=== PATIENT | male | born 1960 | race Caucasian/White ===

== ENCOUNTER 2022-05-27 11:50 | Outpatient (REF) | payer OTHER, SELFPAY ==
[2022-05-27 13:43] LABS: Erythrocyte Sedimentation Rate 2 MM/HR (0-15)
== END 2022-05-27 11:51 | disposition home or self-care (01) ==
LOC: HO.LAB 11:50
PROVIDERS: Visit Provider Psychiatry & Neurology Neurology
DX: H46.9 Unspecified optic neuritis (principal)
CPT/HCPCS: 36415; 85652

== ENCOUNTER 2025-04-10 15:22 | Outpatient (AMB) | payer OTHER, SELFPAY ==
--- NOTE | 2025-04-10 15:31 | A.OFFVIS_ITS ---
Vital Signs 04/10/25 15:34 Height 6 ft Intake Visit Reasons: 6m Allergies penicillin V Allergy (Unknown, Verified 04/10/25 15:35) Unknown Medication List - Last Reconciled 04/10/25 by Lela Mojica CNP albuterol sulfate 90 mcg/actuation 2 puffs inhalation Q4-6H PRN amlodipine 5 mg PO DAILY aspirin 81 mg PO DAILY atorvastatin 80 mg PO DAILY azelastine 2 sprays intranasal BID budesonide-formoterol 160-4.5 mcg/actuation (Symbicort) 1 puff inhalation BID budesonide-formoterol 160-4.5 mcg/actuation (Symbicort) 2 puffs inhalation BID cetirizine 10 mg PO DAILY isosorbide mononitrate ER 60 mg PO DAILY naproxen sodium 550 mg PO Q12H PRN nortriptyline 25 mg PO BEDTIME pantoprazole 40 mg PO DAILY tiotropium bromide (Spiriva with HandiHaler) 1 cap inhalation DAILY tiotropium bromide (Spiriva with HandiHaler) 1 cap inhalation DAILY HPI Comments Details: He was doing okay. Headaches are okay. Headaches triggered by rain and weather changes. Taking naproxen or ibuprofen as needed with good effects. Will usually take ibuprofen a day before storms/weather which works well. Gets frontal headache day of storm/weather, with mild headache 24-36 hr before. Sleep was okay. Has an area of right paracentral quarter size of blurring in right eye between 12 and 2 on the clock that started after hitting eye socket in summer 2021. It has not gotten any worse. Eye exam was okay. Has chronic sinusitis, gets allergy shots, nasal spray, and Zyrtec. Hx of chronic headaches for 20+ years. Headaches triggered by weather changes, particularly storms and cold weather. He gets bifrontal and retro-orbital pressure and pain with congestion lasting 1-2 days. Has tried ibuprofen and Tylenol in the past. He has seen 2 different ENT physicians, has had CT scan for chronic sinusitis in the past. Has mildly deviated nasal septum. Has some difficulty sleeping at night. FORMERLY [facility], [facility]–1983 Medical History (Updated 04/10/25 @ 15:40 by Lela Mojica CNP) Asthma Optic neuritis Tension headache CAD (coronary artery disease) Sinusitis Surgical History (Updated 04/09/25 @ 19:48 by Solange Brooks MA) History of coronary artery stent placement Family History (Updated 04/09/25 @ 19:49 by Solange Brooks MA) Sister CAD (coronary artery disease) Review of Systems Const Denies chills, Denies daytime sleepiness, Reports difficulty sleeping, Denies fatigue, Denies fever(s), Denies frequent falls, Reports headache(s), Denies increased appetite, Denies poor appetite, Denies snoring, Denies weakness, Denies weight gain and Denies weight loss Eyes Reports loss of vision (as per HPI) ENT Reports Normal hearing present, Denies vertigo, Denies dizziness, Reports headache(s) and Denies neck pain Card Denies chest pain at rest, Denies chest pain with activity, Denies syncope, Denies leg edema, Denies palpitations, Denies dyspnea and Denies dyspnea on exertion Resp Denies cough, Denies dyspnea, Denies dyspnea on exertion and Denies snoring GI Denies abdominal pain, Denies constipation, Denies heartburn, Denies diarrhea and Denies nausea Denies urinary frequency, Denies urinary incontinence and Denies urinary urgency Musc Denies abnormal gait, Denies back pain, Denies myalgias, Denies arthralgias, Denies neck pain, Denies numbness, Denies stiffness and Denies tingling Neuro Reports Normal hearing present, Denies Abnormal speech present, Denies abnormal gait, Denies vertigo, Denies dizziness, Denies syncope, Denies frequent falls, Reports headache(s), Denies lack of coordination, Reports loss of vision (as per HPI), Denies memory loss, Denies numbness, Denies Other visual disturbances, Denies restless legs, Denies seizure-like activity, Denies tingling, Denies paresthesias, Denies tremor(s) and Denies weakness Psych Denies anxiety, Denies depression, Denies memory loss, Denies visual hallucinations and Denies hallucinations Endo Denies fatigue and Denies palpitations Physical Exam Const Other: General Appearance:? normal, in no acute distress. Heart:? S1, S2 normal, no murmurs. Lungs:? clear anteriorly and posteriorly. Musculoskeletal:? normal. Extremities:? no edema. Psych:? alert, oriented, cognitive function intact, cooperative with exam. Neuro Other: Abnormal Neurological Findings:?none.? Mental Status: alert and oriented X 3. Normal attention, orientation, memory, and affect. Cranial Nerves: Pupils are equal, round, and reactive to light. External ocular muscles are intact. Visual cohen are full, no ptosis. Face is symmetrical, no facial weakness or droop. Facial sensations are normal. Tongue protrudes in midline. Palate elevates symmetrically. Shoulder shrugging is normal Motor Examination: Normal muscle tone, bulk and strength. No atrophy or fasciculations. No drift of the extended upper extremities. DTR 2+. Plantars are flexor. Straight Leg Raisin degrees. Sensory Exam: Normal light touch, temperature, pinprick, vibration, and joint- position sensations. Rhomberg sign is absent. Coordination: No ataxia. No titubation. Mivcvo-zt-gkky, mwej-jljr-jbhg test, and rapid alternating movements were normal. Gait Exam: Within normal limits. Cerebellar Signs: Jvhbwb-qj-abqk and jenm-gn-kwze is normal. No dysdiadochokinesia. Extrapyramidal System: No tremor, rigidity with normal facial expressions. No bradykinesia. No bradyphrenia. Normal arm swing and posture. No propulsion or retropulsion. Speech: Normal. No dysphasia or dysarthria. Cranial nerves: Yes Normal hearing present Speech: No Abnormal speech present Results Reviewed Results Reviewed: 06/24/22 ALESSIO shows symmetrical slight del ay bilateral on small check size stim. Normal amplitudes. Assessment & Plan Assessment & Plan (1) Tension headache: Code(s): G44.209 - Tension-type headache, unspecified, not intractable Category: Medical Plan: Refilled nortriptyline 25mg 1 capsule at bedtime Continue naproxen 550mg 1 tablet with food or milk as needed q12h (2) Optic neuritis: Code(s): H46.9 - Unspecified optic neuritis Category: Medical Plan: . Plan . Medications: New nortriptyline 25 mg PO BEDTIME 90 caps 1RF 90 days Discontinued nortriptyline Discontinued Reason: Order 25 mg PO BEDTIME Coding Level of Care Code Est Pt Level 3 (66022) Diagnoses Tension headache G44.209 Optic neuritis H46.9
--- OUTSIDE RECORDS SUMMARY | 2025-04-10 15:53 | XMS_ITS | Data Portability ---
Author Organization [facility], [address] Address [address] [place] [address] Care Team Providers Care Casino Shift Manager Name Role Phone DILIP ELLSWORTH Primary Care Provider Assessment Encounter Date Assessment Date Assessment LastModified by Organization Details LastModified Time 03/10/2024 03/10/2024 The laceration was sutured today, the following are the care instructions to promote healing and reduce complications: 1. For the next 48 hours do not submerge the injury in water, if you do get it wet remove dressing and replace with a new one once the area drys out. 2. Keep for bending or stretching the area for the next 72 hours. This is the most important to promote the wound will heal together and have a good cosmetic outcome. Keep the area covered to help prevent bending but don't make the dressing too tight. 3. Keep a dressing on the wound for the next 5-7 days, but you need to change it daily after the first 48 hours. Try to leave the original dressing on and dry. After 72 hours, try to leave the area open to the air at night. 4. Watch for any signs of infection this would be: Increasing Redness, Warmth, Pain, Swelling, Purulent discharge. If this occurs you need to return right away so we can assess if some of those sutures need to be removed. 5. Do not put any Creams/Neospori n/Lotions on the area. You want the wound to harden and heal - not stay soft. Return in 7 days to have the sutures removed. If you would prefer to see you PCP that would be ok, but we are happy to do that for you. After the sutures are removed I would advise using Mederma 2x daily for 60 days to help to reduce scarring. Also using sunscreen for several months on the area is important. Thank you for using [facility], please don't hesitate to contact us if you have any questions or concerns. silvana Not available 03/10/2024 11:57:46 Plan of Treatment Reminders Order Date Submit Date Provider Last Modified By Organization Details Last Modified Time Details Appointments None record ed. Lab None record ed. Referral None record ed. Procedures None record ed. Surgeries None record ed. Imaging None record ed. Medication Orders None record ed. Patient TargetsNo targets recorded. Patient Instructions Encounter Date Encounter Id Patient Instructions Last Modified By Organization Details Last Modified Time 03/10/2024 [id number] application of wound dressing* SHANTEL Not available 03/10/2024 12:21:28 cuts closed with stitches: care instructions silvana Not available 03/10/2024 12:01:09 Discharge Instructions - Wound Care - Wash the wound gently with soap and warm water once daily. Otherwise keep wound clean, dry and covered with a dressing. - Do not immerse in water, and do not use alcohol or peroxide to clean. Do not use iodine or mercurochrome. - Elevate to decrease pain and improve healing. - Minimize use of affected body part. - Return here or see your doctor for any sign of infection, including redness, swelling, pus or increased pain. - Return for wound check in 2 or 3 days. - Return to have stiches removed in 7 days. - If you received a tetanus shot the site may become sore and you may develop a low-grade fever. Take Tylenol if you have fever or pain. Return for a more severe reaction. - See your doctor or return here if not improving in 3 days. silvana Not available 03/10/2024 12:01:52 Reason for Referral None Reported. Results Created Date Observation Date Name Description Value Unit Range Abnormal Flag Note LastModifiedBy Organization Detail LastModifiedTime 03/10/20 24 03/10/2024 appli catio n of wound dress ing* Applied? Yes Not Available [address] [place], [address], 03/10/2024 11:57:21 Result Notes None recorded. Problems Name Problem SNOMED Code Status Onset Date Resolution Date Notes Provider Name and Address Organization Details Recorded Time Heart disease 30319743 Active Naomi Mcelroymellyto n null, PA - [facility] 4 10:33:54 Hypertensiv e disorder 82780846 Active Naomi Mcelroyringto n null, PA - [facility] 4 10:34:08 Asthma 198706218 Active Naomi Mcelroyringto n null, PA - [facility] 4 10:34:18 Migraine 35408906 Active Naomi Mcclendonto n null, PA - [facility] 4 10:34:26 Laceration of left thigh 8978000964302 9109 Active 2023 LISA ZAMORA NP [address] , [place], [address], [place] - [facility] 4 11:56:49 Problem Notes None recorded. Procedures Surgical History Date Name Laterality Status Provider Name and Address Organization Details Recorded Time 4 Suture Removal completed Bola Shaw NP [address], [place], [address], PA - [facility] 03/18/2024 09:20:44 4 Laceration, Simple Repair, (scalp/neck/ trunk/genita marco a/extremit ies) 2.6-7.5cm completed LISA ZAMORA NP [address], [place], [address], PA - [facility] 03/10/2024 11:58:39 Imaging Results None recorded. Procedure Notes None recorded. Medical Equipment None Reported. Allergies Allergen ID Allergen Name Allergen Category Reaction Reaction Severity Criticality Documentation Date Start Date Code Code System Note Provider Name and Address Organization Details Recorded Time 499900 tree and shrub pollen environme nt,medica tion anaphylax is Not available Not available 03/10/2024 07161 UNK Naomi Brett n null, PA - [facility] 4 10:31:26 979571 Product containin g penicilli n (product) medicatio n rash Not available high 03/18/2024 88625 8001 SNOMED DIMA Leal - [facility] 4 08:55:00 Medications Name Sig Start Date Stop Date Status Note LastModified by Organization Details LastModified Time atorvastati n 80 mg tablet TAKE 1 TABLET BY MOUTH DAILY active Not Available Not Available No t Available prednisone 10 mg tablet 03/10 completed Not Available Not Available Not Available azithromyci n 250 mg tablet FOLLOW PACKAGE DIRECTION S 03/10 completed Not Available Not Available Not Available benzonatate 200 mg capsule TAKE 1 CAPSULE BY MOUTH THREE TIMES DAILY FOR 10 DAYS NEEDED FOR COUGH 03/10 completed Not Available Not Available Not Available amlodipine 5 mg tablet TAKE 1 TABLET BY MOUTH DAILY active Not Available Not Available No t Available nortriptyli ne 25 mg capsule TAKE 1 CAPSULE BY MOUTH AT BEDTIME active Not Available Not Available No t Available isosorbide mononitrate ER 60 mg tablet,exte nded release 24 hr TAKE 1 TABLET BY MOUTH DAILY active Not Available Not Available No t Available pantoprazol e 40 mg tablet,ligia yed release TAKE 1 TABLET BY MOUTH DAILY active Not Available Not Available No t Available naproxen sodium 550 mg tablet TAKE 1 TABLET BY MOUTH EVERY 12 HOURS WITH FOOD OR MILK NEEDED active Not Available Not Available No t Available oseltamivir 75 mg capsule TAKE 1 CAPSULE BY MOUTH TWICE DAILY FOR 5 DAYS active Not Available Not Available No t Available azelastine 137 mcg (0.1 %) nasal spray USE 2 SPRAYS IN EACH NOSTRIL TWICE DAILY active Not Available Not Available No t Available methylpredn isolone 4 mg tablets in a dose pack FOLLOW PACKAGE DIRECTION S 03/10 completed Not Available Not Available Not Available albuterol sulfate HFA 90 mcg/actuati on aerosol inhaler INHALE 2 PUFFS BY MOUTH EVERY 6 HOURS J 44.9 active Not Available Not Available No t Available Spiriva with HandiHaler 18 mcg and inhalation capsules INHALE THE CONTENTS OF 1 CAPSULE VIA INHALATIO N DEVICE DAILY active Not Available Not Available No t Available Symbicort 160 mcg-4.5 mcg/actuati on HFA aerosol inhaler INHALE 1 PUFF BY MOUTH TWICE DAILY J 44.909 active Not Available Not Available No t Available GaviLyte-G 236 gram-22.74 gram-6.74 gram-5.86 gram oral solution active Not Available Not Available Not Available Incruse Ellipta 62.5 mcg/actuati on powder for inhalation INHALE 1 PUFF BY MOUTH EVERY 24 HOURS DOSES SHOULD BE TAKEN AT LEAST 24 HOURS APART active Not Available Not Available No t Available Vitals Date Recorded Body height Body mass index (BMI) Body weight Respiratory rate Heart rate Body temperature Systolic And Diastolic Provider Name and Address Organization Details Last Updated DateTime 4 182.88 cm 25 kg/m2 56867 g 18 /min 106 /min 98.1 [degF] 136/87 mm[Hg] Naomi rabago PA - [facility] 4 10:30:51 Date Recorded Body height Body mass index (BMI) Body weight Oxygen saturation Oxygen saturation in Arterial blood by Pulse oximetry Heart rate Respiratory rate Body temperature Systolic And Diastolic Provider Name and Address Organization Details Last Updated DateTime 4 182.88 cm 25 kg/m2 75550 g 98 % 98 % 85 /min 18 /min 97.5 [degF] 115/68 mm[Hg] Cari Sahu PA - [facility] 4 08:58:05 Social History Question Answer Notes LastModified by Alexandre de Parisizat ion Details LastModified Time Tobacco Smoking Status Current Every Day Smoker Naomi pérez PA - [facility] 03/10/2024 10:34:58 Have You Had Direct Contact, Or Contact During Intimacy, With Monkeypox Rash, Scabs, Or Body Fluids From A Person With Monkeypox? No Information not available 03/10/2024 What Was The Date Of Your Most Recent Tobacco Screening? 03/18/2024 Information not available 03/18/2024 What Is Your Current Pack Years? 10packyears Information not available 03/18/2024 What Is Your Relationship Status? Information not available 03/18/2024 Have You Recently Traveled Abroad? No Information not available 03/10/2024 Are You Currently In School? No Information not available 03/18/2024 Sex: Unknown Functional Status Question Answer Note LastModified by Organizat ion Details LastModified Time How many times per week do you consume alcohol? Less than 1 time per week vinny Information not available 03/18/2024 Do you use any illicit or recreational drugs? Yes Information not available 03/10/2024 Do you or have you ever used any other forms of tobacco or nicotine? No Information not available 03/10/2024 What is your level of alcohol consumption? Occasional Information not available 03/10/2024 Are you currently employed? Yes Information not available 03/18/2024 Mental Status None recorded. Family History Relationship Description Onset Age of this Age Resolved Age Notes LastModified by Organization Details LastModified Time Father No current problems or disability Not available 10:34:29 Mother No current problems or disability Not available 10:34:29 Medical History No medical history recorded. Immunizations Vaccine Type Date Status Note Provider Nam e and Address Organization Details Recorded Time Influenza, MDCK, quadrivalent, PF 8 completed Cari Sahu null, PA - [facility] 03/18/2024 08:54:15 COVID-19, mRNA, LNP-S, PF, 100 mcg/0.5mL dose or 50 mcg/0.25mL dose 1 completed Cari Sahu null, PA - [facility] 03/18/2024 08:54:15 COVID-19, mRNA, LNP-S, PF, 100 mcg/0.5mL dose or 50 mcg/0.25mL dose 1 completed Cari Mcgrath Hedavin null, PA - [facility] 03/18/2024 08:54:15 COVID-19, mRNA, LNP-S, PF, 100 mcg/0.5mL dose or 50 mcg/0.25mL dose 1 completed Cari Sahu null, PA - [facility] 03/18/2024 08:54:15 Tdap 9 completed Cari Sahu null, PA - [facility] 03/18/2024 08:54:15 Tdap 1 completed Cari Mcgrath Heyliger null, PA - [facility] 03/18/2024 08:54:15 Td (adult), 2 Lf tetanus toxoid, preservative free, adsorbed 1 completed Caridianne Mcgrath Heyliger null, PA - [facility] 03/18/2024 08:54:15 Influenza, split virus, quadrivalent, PF 2 completed Cari Mcgrath Heyliger null, PA - [facility] 03/18/2024 08:54:15 Influenza, split virus, quadrivalent, PF 0 completed Cari Mcgrath Heyliger null, PA - [facility] 03/18/2024 08:54:15 Influenza, split virus, quadrivalent, PF 3 completed Caridianne Mcgrath Heyliger null, PA - [facility] 03/18/2024 08:54:15 Influenza, split virus, quadrivalent, PF 7 completed Cari Mcgrath Heyliger null, PA - [facility] 03/18/2024 08:54:15 Influenza, split virus, quadrivalent, PF 1 completed Cari Mcgrath Heyliger null, PA - [facility] 03/18/2024 08:54:15 Tdap 4 completed LISA ZAMORA NP [address] [facility] [place], [address], PA - [facility] 03/10/2024 19:23:50 Past Encounters Encounter ID Performer Location Encounter Start Date Encounter Closed Date Diagnosis/Indication Diagnosis SNOMED-CT Code Diagnosis ICD10 Code Diagnosis Note [id number] [address] [place] [address] 10/05/2015 19:03:30 10/05/2015 19:49:27 [id number] [address] [place] [address] 10/18/2016 10:32:40 10/18/2016 11:04:25 [id number] [address] [place] [address] 12/17/2018 09:47:03 12/17/2018 10:55:09 [id number] [address] [facility] [place] [address] 03/23/2021 08:15:57 03/23/2021 09:05:22 [id number] [address] [place] [address] 12/08/2020 18:22:45 12/08/2020 20:04:36 [id number] [address] [place] [address] 12/14/2016 11:17:28 12/14/2016 13:33:15 [id number] [address] [place] [address] 01/18/2016 10:21:11 01/18/2016 10:49:42 [id number] LISA ZAMORA, WINE STEWARD [address] [place] [address] 03/10/2024 10:21:58 03/10/2024 12:04:32 Laceration of left thigh [id number] S71.112A [id number] Bola Colin, WINE STEWARD [address] [place] [address] 03/18/2024 08:47:09 03/18/2024 09:22:18 Laceration of left thigh [id number] S71.112A KEEP AREA CLEAN AND DRY.MAY APPLY SMALL AMOUNT OF TRIPLE ANTIBIOTIC OINTMENT TO AREA DAILY.LET AREA AIR DRY MUCH POSSIBLE.C OVER AREA IF OUT IN PUBLIC.NO ANIMIALS AROUND WOUND.MAY WASH AREA WITH GENTLE ANTIBACTER IAL SOAP OR BABY SHAMPOO.JONES TURES OUT INSTRUCTED .KEEP EXTREMITY ELEVATEDAV OID DISHWATER, BATH TUB WATER, POOL OR HESTER WATER.STEWART TOR FOR SIGNS OF INFECTION: FEVER, REDNESS, SWELLING, YELLOW DRAINAGE, RED STREAKING, INCREASED PAIN OR DECREASED MOVEMENT OF EXTREMITY. GO TO ER IMMEDIATEL Y.IF PRESCRIBED ANTIBIOTIC : TAKE ALL OF ANTIBIOTIC DIRECTED.M AY CHANGE DRESSING DAILY NEEDED.MAY RETURN IN 2 TO 3 DAYS FOR WOUND RECHECK NEEDED. Removal of suture [id number] Z48.02 KEEP AREA CLEAN AND DRY.MAY APPLY SMALL AMOUNT OF TRIPLE ANTIBIOTIC OINTMENT TO AREA DAILY.LET AREA AIR DRY MUCH POSSIBLE.C OVER AREA IF OUT IN PUBLIC.NO ANIMIALS AROUND WOUND.MAY WASH AREA WITH GENTLE ANTIBACTER IAL SOAP OR BABY SHAMPOO.JONES TURES OUT INSTRUCTED .KEEP EXTREMITY ELEVATEDAV OID DISHWATER, BATH TUB WATER, POOL OR HESTER WATER.STEWART TOR FOR SIGNS OF INFECTION: FEVER, REDNESS, SWELLING, YELLOW DRAINAGE, RED STREAKING, INCREASED PAIN OR DECREASED MOVEMENT OF EXTREMITY. GO TO ER IMMEDIATEL Y.IF PRESCRIBED ANTIBIOTIC : TAKE ALL OF ANTIBIOTIC DIRECTED.M AY CHANGE DRESSING DAILY NEEDED.MAY RETURN IN 2 TO 3 DAYS FOR WOUND RECHECK NEEDED. Health Concerns Section Related Observation LastModified by Organization Detai ls LastModified Time None Recorded Concern Status LastModified by Organization Details LastModified Time None Recorded Advance Directives Directive None Recorded Payers Insurance Date Sequence Insurance Name Policy Number Policy Verdin Covered Member ID Verdin Member ID Guarantor Name 03/18/2024 1 [facility] [id number] Kendell Barillas [id number] Kendell Barillas Notes Date Note Type Note Provider Name and Address Organization Details Recorded Time 03/10/2024 text/html UC Wound/LacerationRe ported bypatient.Location :thighs; left inner thigh laceration Severity:moderate Context:trauma 64 y male here for laceration to inner thigh, left legwas cutting some pipes when the blade slipped and caused injury to inner thightetanus unknown LISA ZAMORA NP [address] [place], [address], [place] - [facility] 03/10/2024 19:24:17 03/18/2024 text/html UC Wound/LacerationRe ported bypatient.Location :thighs; left inner thigh laceration Severity:moderate Context:trauma 64 y male here for laceration to inner thigh, left legwas cutting some pipes when the blade slipped and caused injury to inner thightetanus unknown Bola Shaw NP [address] [place], [address], PA - [facility] 03/18/2024 09:21:16
--- OUTSIDE RECORDS SUMMARY | 2025-04-10 15:53 | XMS_ITS | Clinical Summary ---
Author Organization [facility] [employer] [facility] Address [address] [place] [address] Care Team Providers Care Grocery Deliverer Name Role Phone Rsahid Madden Primary Care Provider [phone] Medications amLODIPine (NORVASC) 5 mg tablet Take 1 tablet (5 mg total) by mouth 1 (one) time each day. 90 each 3 4 Active isosorbide mononitrate (IMDUR) 60 mg 24 hr tablet Take 1 tablet (60 mg total) by mouth 1 (one) time each day. Do not crush or chew. 90 each 2 4 Active atorvastatin (LIPITOR) 80 mg tablet Take 1 tablet (80 mg total) by mouth 1 (one) time each day. 90 tablet 1 5 Active atorvastatin (LIPITOR) 80 mg tablet Take 1 tablet (80 mg total) by mouth 1 (one) time each day. 4 03/26/20 25 Discontinu ed(Reorder ) Encounters Date Type Department Care Team Description 03/26/2025 Telephone [facility] Cardiology [facility] [address] [place] [address] Cam Trevino MD from Last 3 Months Surgical History Surgery Date Site/Laterality Comments OTHER SURGICAL HISTORY 1987 PROCEDURE: [place] REPAIR PRIMARY OPEN/PRQ RUPTURED ACHILLES TENDON; COMMENT: Right OTHER SURGICAL HISTORY PROCEDURE: VT OPEN TX TRANS-SCAPHOPERILUNAR FRACTURE DISLC; COMMENT: Right OTHER SURGICAL HISTORY 12/2007 PROCEDURE: CHG ASSAY OF PROSTATE SPECIFIC ANTIGEN FREE; COMMENT: 1.2 HERNIA REPAIR 04/2008 PROCEDURE: HISTORICAL HERNIA REPAIR/ING; COMMENT: Right; Delacruz COLONOSCOPY 10/07/2012 PROCEDURE: VT COLONOSCOPY FLX DX W/COLLJ SPEC WHEN PFRMD; COMMENT: normal OTHER SURGICAL HISTORY 08/12/2015 Right PROCEDURE: VT OPEN REPAIR OF ROTATOR CUFF ACUTE; COMMENT: Florentin OTHER SURGICAL HISTORY 03/30/2019 PROCEDURE: UPPER GASTROINTESTINAL ENDOSCOPY IN; COMMENT: Grade A esophagitis in the GE, medium hiatal hernia, erosive gastritis OTHER SURGICAL HISTORY 10/04/2015 PROCEDURE: VT EGD PARTIAL/COMPL ESOPHAGOGASTRIC FUNDOPLASTY OTHER SURGICAL HISTORY PROCEDURE: SURGICAL STENT; COMMENT: Placement of stent in cardiac conduit Medical History Medical History Date Comments Migraine, unspecified, witho ut mention of intractable migraine without mention of status migrainosus 12/15/2007 DX:Migraine, uns pecified, without mention of intractable migraine without mention of status migrainosus Allergic rhinitis 12/15/2007 DX:Allergic rh initis Historical Medical DX 01/06/2008 DX:BPH Tobacco abuse 01/06/2008 DX:Tobacco abuse Chronic sinusitis 02/20/2008 DX:Chronic sin usitis; COMMENT: DR ROGEL, ENT [facility] Pulmonary embolism ([facility] V24, [facility] V28) 10/30/2015 DX:Pulmonary embolism (HCC) COPD (chronic obstructive pu lmonary disease) ([facility] V24, [facility] V28) 02/08/2014 DX:COPD (chronic o bstructive pulmonary disease) ([facility]); COMMENT: Luis Miguelini Initially felt COPD but 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 PFTS 2013 normal HI (myocardial infarction) ( [facility] V24, [facility] V28) 04/2017 DX:HI (myocardial infarction ) ([facility]); COMMENT: inferior wall HI, right coronary stent place, sees Dr. Ramos. HI (myocardial infarction) ( [facility] V24, [facility] V28) DX:HI (myocardial infarction ) ([facility]) Actinic keratosis, hx of DX:Acti lala keratosis, hx of Hiatal hernia with GERD and esophagitis 05/04/2019 DX:Hiatal hernia with GERD a nd esophagitis; COMMENT: Grade A esophagitis, [facility] GI - referral to surgery Hiatal hernia with GERD and esophagitis 05/04/2019 DX:Hiatal hernia with GERD a nd esophagitis Hypertension 11/08/2020 DX:Hypertension History of migraine DX:History o f migraine Dyspnea and respiratory abnormalities DX:Dyspnea and respiratory abnormalities Family History Medical History Relation Name Comments Leukemia Father Hyperlipidemia Mother Hypertension Mother Migraines Mother Leukemia Paternal Grandmother Other cancer Paternal Grandmother Leukemi a Heart attack Sister age 47 Heart attack Uncle 1 mat Stroke Uncle 2 mat Heart attack Uncle 3 mat; age 4 8 Leukemia Uncle 4 pat Blindness Neg Hx Cataracts Neg Hx Glaucoma Neg Hx Macular degeneration Neg Hx Strabismus Neg Hx Relation Name Status Comments Father Mother Paternal Grandmother Sister Uncle 1 Uncle 2 Uncle 3 Uncle 4 Social History Tobacco Use Types Packs/Day Years Used Date Smoking Tobacco: Every Day Cigarettes Smokeless Tobacco: Never Alcohol Use Standard Drinks/Week Comments Yes 0 (1 standard drink = 0.6 oz pur e alcohol) Sex and Gender Information Value Date Recorded Sex Assigned at Not on file Legal Sex Male 9:01 AM EST Gender Identity Not on file Sexual Orientation Not on file Obstetrics History Last Filed Vital Signs Vital Sign Reading Time Taken Comments Blood Pressure 122/70 06/15/2024 8:24 AM EDT L A rm Pulse 95 06/15/2024 8:24 AM EDT Temperature - - Respiratory Rate - - Oxygen Saturation - - Inhaled Oxygen Concentration - - Weight 82.1 kg (181 lb) 06/15/2024 8:24 AM EDT Height 182.9 cm (6') 06/15/2024 8:24 AM EDT Body Mass Index 24.55 06/15/2024 8:24 AM EDT Plan of Treatment Upcoming Encounters Date Type Department Care Team (Late st Contact Info) Description 05/28/2025 2:10 PM EDT Office Visit [facility] [address] [place] [address] Violeta Rushing NP [address] [place] [address] [address] [place] [address] Health Maintenance Due Date Last Done Comments Zoster Vaccines (1 of 2) 02/26/1979 Pneumococcal Vaccine: 50+ Years (2 of 2 - PCV) 04/28/2018 04/28/2017 Pneumococcal Vaccine: Pediatrics (0 to 5 Years) and At-Risk Patients (6 to 49 Years) (2 of 2 - PCV) 04/28/2018 04/28/2017 RSV Immunization Adult Patients (1 - Risk 60-74 years 1-dose series) 2020 Abdominal Aortic Aneurysm (AAA) Screen 09/12/2022 Cholesterol Screening (Lipid Panel) 09/12/2022 Colorectal Cancer Screening: Colonoscopy 09/12/2022 Depression Screening 09/12/2022 Hepatitis C Screening 09/12/2022 Social Influencers of Health Screening 09/12/2022 Hypertension/CHF/CAD Annual BMP Blood Test 09/13/2022 COVID-19 Vaccine ( season) 2024 09/30/2021, 11/05/2020, 10/08/2020 Falls Risk Assessment 02/26/2025 Influenza Vaccine (#1) 2025 , 07/26/2023, 07/16/2022, Additional history exists DTaP,Tdap,and Td Vaccines (5 - Td or Tdap) 03/10/2034 03/10/2024, 08/30/2021, 12/08/2020, Additional history exists HIB Vaccines Aged Out No longer eligi ble based on patient's age to complete this topic HPV Vaccines Aged Out No longer eligi ble based on patient's age to complete this topic Hepatitis A Vaccines Aged Out No long er eligible based on patient's age to complete this topic Hepatitis B Vaccines Aged Out No long er eligible based on patient's age to complete this topic IPV Vaccines Aged Out No longer eligi ble based on patient's age to complete this topic MMR Vaccines Aged Out No longer eligi ble based on patient's age to complete this topic Meningococcal ACWY Vaccine Aged Out N o longer eligible based on patient's age to complete this topic Meningococcal B Vaccine Aged Out No l onger eligible based on patient's age to complete this topic RSV Immunization Patients Under 20 months Aged Out No longer eligible based on patient's age to complete this topic Varicella Vaccines Aged Out No longer eligible based on patient's age to complete this topic Insurance [facility] Care Teams Grocery Deliverer Relationship Specialty Start Date End Date Rashid Madden PA PCP - General Internal Medicine 06/26/22
== END 2025-04-10 15:43 | disposition home or self-care (01) ==
LOC: HO.HSM 15:22
PROVIDERS: PCP Physician Assistant Medical; Referring Provider Physician Assistant Medical; Visit Provider Registered Nurse
DX: G44.209 Tension-type headache, unspecified, not intractable (principal); H46.9 Unspecified optic neuritis
CPT/HCPCS: 99213

== ENCOUNTER 2025-06-06 15:52 | Outpatient (AMB) | payer OTHER, SELFPAY ==
--- OUTSIDE RECORDS SUMMARY | 2025-06-06 17:44 | XMS_ITS | Clinical Summary ---
Author Organization [facility] Address [address] [place] [address] Phone Care Team Providers Care Regeneration Operator Name Role Phone Unavailable Primary Care Provider Unavailabl e Allergies Active Allergy Reactions Criticality Noted Date Comments Penicillin G 05/28/2025 Pale, sweaty, shaking Medications pantoprazole (PROTONIX) 40 mg EC tablet Take 1 tablet (40 mg total) by mouth 1 (one) time each day. Active aspirin 81 mg EC tablet Take 1 tablet (81 mg total) by mouth 1 (one) time each day. Active cetirizine (ZyrTEC) 10 mg tablet Take 1 tablet (10 mg total) by mouth 1 (one) time each day. Active azelastine (ASTELIN) 137 mcg (0.1 %) nasal spray Administer 2 sprays into each nostril 2 (two) times a day. Active Symbicort 160-4.5 mcg/actuation inhaler Inhale 1 puff by mouth 2 (two) times a day. Active Spiriva with HandiHaler 18 mcg per inhalation capsule Place 1 capsule (18 mcg total) into inhaler and inhale 1 (one) time each day. Active nitroglycerin (NITROSTAT) 0.[address] 1 tablet (0.4 mg total) under the tongue if needed. 7 Active nortriptyline (PAMELOR) 25 mg capsule Take 1 capsule (25 mg total) by mouth at bedtime. at bedtime Active UNABLE TO FIND Allergy injection every 2 weeks Active isosorbide mononitrate (IMDUR) 60 mg 24 hr tablet Take 1 tablet (60 mg total) by mouth 1 (one) time each day. Do not crush or chew. 90 each 2 5 Active amLODIPine (NORVASC) 5 mg tablet Take 1 tablet (5 mg total) by mouth 1 (one) time each day. 90 each 2 5 Active atorvastatin (LIPITOR) 80 mg tablet Take 1 tablet (80 mg total) by mouth 1 (one) time each day. 90 tablet 2 5 Active amLODIPine (NORVASC) 5 mg tablet Take 1 tablet (5 mg total) by mouth 1 (one) time each day. 90 each 3 4 05/28/20 25 Discontin ued(Reord er) isosorbide mononitrate (IMDUR) 60 mg 24 hr tablet Take 1 tablet (60 mg total) by mouth 1 (one) time each day. Do not crush or chew. 90 each 2 4 05/28/20 25 Discontin ued(Reord er) atorvastatin (LIPITOR) 80 mg tablet Take 1 tablet (80 mg total) by mouth 1 (one) time each day. 90 tablet 1 5 05/28/20 25 Discontin ued(Reord er) Active Problems Problem Noted Date Diagnosed Date Coronary artery disease invo lving [place] coronary artery of [place] heart without angina pectoris 05/28/2025 Assessment & Plan (05/28/2025 4:03 PM EDT): Patient has history of coronary artery disease status post right coronary artery stenting in 2017. He also has moderate nonobstructive coronary artery disease in his LAD. Patient feels well and denies any exertional anginal symptoms. He remains on cardioprotective medical therapy with aspirin and statin. He has sublingual nitroglycerin available if needed. I have reviewed with the patient the importance of a heart healthy lifestyle which includes eating a low-fat low-salt diet, getting regular exercise, maintaining a healthy weight, not smoking, and following up with routine medical care. Chronic GERD 05/28/2025 Hypertension 11/08/2020 Assessment & Plan (05/28/2025 4:03 PM EDT): Blood pressure is under excellent control with a reading today 124/80. We will make no changes to his present medical therapies and he will continue with amlodipine as prescribed. Hyperlipidemia 09/19/2014 Overview (05/28/2025): Last Assessment & Plan: Patient's last LDL cholesterol was 49. This is at goal. Continue with statin as prescribed. Assessment & Plan (05/28/2025 4:03 PM EDT): Patient's last LDL cholesterol 50. Continue with statin as prescribed. Resolved Problems Problem Noted Date Diagnosed Date Resolved Date Acute transmural inferior wa ll [place] ([facility] V24, [facility] V28) 06/24/2022 05/28/2025 Coronary artery disease 11/08/202005/05 Overview (05/28/2025): Last Assessment & Plan: Patient with a history of episodic coronary disease. Status post remote stenting in 2017. Preserved ejection fraction well-controlled lipids and no symptoms we discussed the signs and symptoms of progressive disease and the need to contact us if they occur otherwise the patient will continue present medical management and follow- up in 1 year Encounters Date Type Department Care Team Description 05/28/2025 2:10 PM EDT Office Visit [facility] Cardiology [address] [place] [address] Violeta Rushing NP Coronary artery disease involving [place] coronary artery of [place] heart without angina pectoris (Primary Dx); Primary hypertension; Mixed hyperlipidemia 03/26/[address] [place] [address] Cam Trevino MD from Last 3 Months Surgical History Surgery Date Site/Laterality Comments OTHER SURGICAL HISTORY 1987 PROCEDURE: RI REPAIR PRIMARY OPEN/PRQ RUPTURED ACHILLES TENDON; COMMENT: Right OTHER SURGICAL HISTORY PROCEDURE: RI OPEN TX TRANS-SCAPHOPERILUNAR FRACTURE DISLC; COMMENT: Right OTHER SURGICAL HISTORY 12/2007 PROCEDURE: CHG ASSAY OF PROSTATE SPECIFIC ANTIGEN FREE; COMMENT: 1.2 HERNIA REPAIR 04/2008 PROCEDURE: HISTORICAL HERNIA REPAIR/ING; COMMENT: Right; Jayme COLONOSCOPY 10/07/2012 PROCEDURE: RI COLONOSCOPY FLX DX W/COLLJ SPEC WHEN PFRMD; COMMENT: normal OTHER SURGICAL HISTORY 08/12/2015 Right PROCEDURE: RI OPEN REPAIR OF ROTATOR CUFF ACUTE; COMMENT: Florentin OTHER SURGICAL HISTORY 03/30/2019 PROCEDURE: UPPER GASTROINTESTINAL ENDOSCOPY IN; COMMENT: Grade A esophagitis in the GE, medium hiatal hernia, erosive gastritis OTHER SURGICAL HISTORY 10/04/2015 PROCEDURE: RI EGD PARTIAL/COMPL ESOPHAGOGASTRIC FUNDOPLASTY OTHER SURGICAL HISTORY [...] DX:Chronic sin usitis; COMMENT: DR ROGEL, ENT [facility] Pulmonary embolism ([facility], [facility] V28) 10/30/2015 DX:Pulmonary embolism ([facility]) COPD (chronic obstructive pu lmonary disease) ([facility]24, [facility] V28) 02/08/2014 DX:COPD (chronic o bstructive pulmonary disease) ([facility]); COMMENT: Nata Initially felt COPD but 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 PFTS 2013 normal AR (myocardial infarction) ( [facility] V24, [facility] V28) 04/2017 DX:AR (myocardial infarction ) ([facility]); COMMENT: inferior wall AR, right coronary stent place, sees Dr. Ramos. AR (myocardial infarction) ( [facility] V24, [facility] V28) DX:AR (myocardial infarction ) ([facility]) Actinic keratosis, hx of DX:Acti lala keratosis, hx of Hiatal hernia with GERD and esophagitis 05/04/2019 DX:Hiatal hernia with GERD a nd esophagitis; COMMENT: [facility]ophag[facility] Hiatal hernia with GERD and esophagitis 05/04/2019 DX:Hiatal hernia with GERD a nd esophagitis Hypertension 11/08/2020 DX:Hypertension History of migraine DX:History o f migraine Dyspnea and respiratory abnormalities DX:Dyspnea and respiratory abnormalities Acute transmural inferior wa ll AR ([facility] V24, [facility] V28) 06/24/2022 Family History Medical History Relation Name Comments [...] Tobacco: Every Day Cigarettes Smokeless Tobacco: Never Tobacco Cessation:Ready to Q uit: Not Asked; Counseling Given: Not Answered Comments:5 cigarettes daily Alcohol Use Standard Drinks/Week Comments Yes 0 (1 standard drink = 0.6 oz pur e alcohol) socially Sex and Gender Information Value Date Recorded Sex Assigned at Not on file Legal Sex Male 9:01 AM EST Gender Identity Not on file Sexual Orientation Not on file Obstetrics History Last Filed Vital Signs Vital Sign Reading Time Taken Comments Blood Pressure 124/80 05/28/2025 2:14 PM EDT Pulse 90 05/28/2025 2:14 PM EDT Temperature - - Respiratory Rate - - Oxygen Saturation 98% 05/28/2025 2:14 PM EDT Inhaled Oxygen Concentration - - Weight 81.2 kg (179 lb) 05/28/2025 2:14 PM EDT Height 182.9 cm (6') 05/28/2025 2:14 PM EDT Body Mass Index 24.28 05/28/2025 2:14 PM EDT Plan of Treatment Health Maintenance Due Date Last Done Comments Zoster Vaccines (1 of 2) 02/26/1979 Pneumococcal Vaccine: 50+ Years (2 of 2 - PCV) 04/28/2018 04/28/2017 RSV Immunization Adult Patients (1 - Risk 60-74 years 1-dose series) 2020 Abdominal Aortic Aneurysm (AAA) Screen 09/12/2022 Cholesterol Screening (Lipid Panel) 09/12/2022 Colorectal Cancer Screening: Colonoscopy 09/12/2022 Hepatitis C Screening 09/12/2022 Social Influencers of Health Screening 09/12/2022 Hypertension/CHF/CAD Annual BMP Blood Test 09/13/2022 Depression Screening 10/04/2024 Falls Risk Assessment 02/26/2025 COVID-19 Vaccine ( season) 2025 09/30/2021, 11/05/2020, 10/08/2020 Influenza Vaccine (#1) 2025 , 07/26/2023, 07/16/2022, [...] on patient's age to complete this topic Procedures Procedure Name Priority Date/Time Associated Diagnosis Comments ECG 12-LEAD Routine 05/28/2025 4:24 PM EDT Coronary artery disease involving [place] coronary artery of [place] heart without angina pectoris from Last 3 Months Results * ECG 12 lead (05/28/2025 4:24 PM EDT) Ventricular Rate ECG 79 BPM GEMUSE Atrial Rate 79 BPM GEMUSE P-R Interval 174 ms GEMUSE QRS Duration 84 ms GEMUSE Q-T Interval 406 ms GEMUSE QTc 465 ms GEMUSE P Wave [place] 61 degrees GEMUSE R [place] 76 degrees GEMUSE T [place] 69 degrees GEMUSE ECG Interpretation Sinus rhythm with occasional Premature ventricular complexes Otherwise normal ECG No previous ECGs available Confirmed by Antonella TREVINO JAMES ([id number]) on 05/29/2025 1:04:24 PM GEMUSE 05/28/2025 2:26 PM EDT 05/29/2025 1:04 PM EDT us Violeta Rushing SEARCH DEVELOPER ECG ORDERABLES Edited Resul t - Final GEMUSE from Last 3 Months Insurance [facility]
== END 2025-06-06 15:54 | disposition home or self-care (01) ==
LOC: HO.HMGAL 15:52
PROVIDERS: PCP Physician Assistant Medical; Visit Provider Registered Nurse Emergency
DX: J30.89 Other allergic rhinitis (principal)
CPT/HCPCS: 95117; 95165

== ENCOUNTER 2025-06-18 15:57 | Outpatient (AMB) | payer OTHER, SELFPAY ==
--- OUTSIDE RECORDS SUMMARY | 2025-06-18 21:11 | XMS_ITS | Clinical Summary ---
Author Organization [facility] [address] [facility] Address [address] [place] [address] Phone Care Team Providers Care Hole Puncher Strap Name Role Phone Unavailable Primary Care Provider [...] Diagnosed Date Coronary artery disease invo lving [place] coronary artery of [place] heart without angina pectoris 05/28/2025 Assessment & [...] Resolved Date Acute transmural inferior wa ll [place] (CMS/[facility] V24, [facility] V28) 06/24/2022 05/28/2025 Coronary artery disease 11/08/202005/05 [...] Description 05/28/2025 2:10 PM EDT Office Visit [facility] Cardiology [address] [place] [address] Violeta Rushing NP Coronary artery disease involving [place] coronary artery of [place] heart without angina pectoris (Primary Dx); Primary hypertension; Mixed hyperlipidemia 03/26/[address] [place] [address] Cam Trevino MD from Last 3 Months Surgical History Surgery Date Site/Laterality Comments OTHER SURGICAL HISTORY 1987 PROCEDURE: LA REPAIR PRIMARY OPEN/PRQ RUPTURED ACHILLES TENDON; COMMENT: Right OTHER SURGICAL HISTORY PROCEDURE: LA OPEN TX TRANS-SCAPHOPERILUNAR FRACTURE DISLC; COMMENT: Right OTHER SURGICAL HISTORY 12/2007 PROCEDURE: CHG ASSAY OF PROSTATE SPECIFIC ANTIGEN FREE; COMMENT: 1.2 HERNIA REPAIR 04/2008 PROCEDURE: HISTORICAL HERNIA REPAIR/ING; COMMENT: Right; Jayme COLONOSCOPY 10/07/2012 PROCEDURE: LA COLONOSCOPY FLX DX W/COLLJ SPEC WHEN PFRMD; COMMENT: normal OTHER SURGICAL HISTORY 08/12/2015 Right PROCEDURE: LA OPEN REPAIR OF ROTATOR CUFF ACUTE; COMMENT: Florentin OTHER SURGICAL HISTORY 03/30/2019 PROCEDURE: UPPER GASTROINTESTINAL ENDOSCOPY IN; COMMENT: Grade A esophagitis in the GE, medium hiatal hernia, erosive gastritis OTHER SURGICAL HISTORY 10/04/2015 PROCEDURE: LA EGD PARTIAL/COMPL ESOPHAGOGASTRIC FUNDOPLASTY OTHER SURGICAL HISTORY [...] DX:Chronic sin usitis; COMMENT: DR ROGEL, ENT [facility] Pulmonary embolism ([facility] V24, [facility] V28) 10/30/2015 DX:Pulmonary embolism ([facility]) COPD (chronic obstructive pu lmonary disease) ([facility] V24, [facility] V28) 02/08/2014 DX:COPD (chronic o bstructive pulmonary disease) ([facility]); COMMENT: Nata Initially felt COPD but 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 PFTS 2013 normal NE (myocardial infarction) ( [facility] V24, [facility] V28) 04/2017 DX:NE (myocardial infarction ) ([facility]); COMMENT: inferior wall NE, right coronary stent place, sees Dr. Ramos. NE (myocardial infarction) ( [facility] V24, [facility] V28) DX:NE (myocardial infarction ) ([facility]) Actinic keratosis, hx of DX:Acti lala keratosis, hx of Hiatal hernia with GERD and esophagitis 05/04/2019 DX:Hiatal hernia with GERD a nd esophagitis; COMMENT: Grade A esophagitis, [facility] - referral to surgery Hiatal hernia with GERD and esophagitis 05/04/2019 DX:Hiatal hernia with GERD a nd esophagitis Hypertension 11/08/2020 DX:Hypertension History of migraine DX:History o f migraine Dyspnea and respiratory abnormalities DX:Dyspnea and respiratory abnormalities Acute transmural inferior wa ll NE ([facility] V24, [facility] V28) 06/24/2022 Family History Medical History Relation [...] 4:24 PM EDT Coronary artery disease involving [place] coronary artery of [place] heart without angina pectoris from Last 3 Months Results * ECG 12 lead (05/28/2025 4:24 PM EDT) Ventricular Rate ECG 79 BPM GEMUSE Atrial Rate 79 BPM GEMUSE P-R Interval 174 ms GEMUSE QRS Duration 84 ms GEMUSE Q-T Interval 406 ms GEMUSE QTc 465 ms GEMUSE P Wave [place] 61 degrees GEMUSE R [place] 76 degrees GEMUSE T [place] 69 degrees GEMUSE ECG Interpretation Sinus rhythm with occasional Premature ventricular complexes Otherwise normal ECG No previous ECGs available Confirmed by Antonella TREVINO JAMES ([id number]) on 05/29/2025 1:04:24 PM GEMUSE 05/28/2025 2:26 PM EDT 05/29/2025 1:04 PM EDT us Violeta Rushing MOTOR AND GENERATOR BRUSH MAKER ECG ORDERABLES Edited Resul t - Final GEMUSE from Last 3 Months Insurance [facility]
== END 2025-06-18 16:10 | disposition home or self-care (01) ==
LOC: HO.HMGAL 15:57
PROVIDERS: PCP Physician Assistant Medical; Visit Provider Registered Nurse Emergency
DX: J30.89 Other allergic rhinitis (principal)
CPT/HCPCS: 95117; 95165

== ENCOUNTER 2025-07-09 15:58 | Outpatient (AMB) | payer OTHER, SELFPAY ==
--- OUTSIDE RECORDS SUMMARY | 2025-07-09 18:16 | XMS_ITS | Clinical Summary ---
Author Organization [facility] [employer] [facility] Address [address] [address] Phone Care Team Providers Care Land Lease Information Clerk Name Role Phone Unavailable Primary Care Provider [...] each day. 90 tablet 2 5 Active Active Problems Problem Noted Date Diagnosed Date Coronary artery disease invo lving [place] coronary artery of [place] heart without angina pectoris 05/28/2025 Assessment & [...] Resolved Date Acute transmural inferior wa ll [place] ([facility] V24, [facility] V28) 06/24/2022 05/28/2025 Coronary artery disease 11/08/202005/05 02/2025 Overview (05/28/2025): Last Assessment & Plan: Patient [...] Description 05/28/2025 2:10 PM EDT Office Visit [facility] [address] [place] [address] Violeta Rushing NP Coronary artery disease involving [place] coronary artery of [place] heart without angina pectoris (Primary Dx); Primary hypertension; Mixed hyperlipidemia from Last 3 Months Surgical History Surgery Date Site/Laterality Comments OTHER SURGICAL HISTORY 1987 PROCEDURE: NE REPAIR PRIMARY OPEN/PRQ RUPTURED ACHILLES TENDON; COMMENT: Right OTHER SURGICAL HISTORY PROCEDURE: NE OPEN TX TRANS-SCAPHOPERILUNAR FRACTURE DISLC; COMMENT: Right OTHER SURGICAL HISTORY 12/2007 PROCEDURE: CHG ASSAY OF PROSTATE SPECIFIC ANTIGEN FREE; COMMENT: 1.2 HERNIA REPAIR 04/2008 PROCEDURE: HISTORICAL HERNIA REPAIR/ING; COMMENT: Right; Jayme COLONOSCOPY 10/07/2012 PROCEDURE: NE COLONOSCOPY FLX DX W/COLLJ SPEC WHEN PFRMD; COMMENT: normal OTHER SURGICAL HISTORY 08/12/2015 Right PROCEDURE: NE OPEN REPAIR OF ROTATOR CUFF ACUTE; COMMENT: Braedener OTHER SURGICAL HISTORY 03/30/2019 PROCEDURE: UPPER GASTROINTESTINAL ENDOSCOPY IN; COMMENT: Grade A esophagitis in the GE, medium hiatal hernia, erosive gastritis OTHER SURGICAL HISTORY 10/04/2015 PROCEDURE: NE EGD PARTIAL/COMPL ESOPHAGOGASTRIC FUNDOPLASTY OTHER SURGICAL HISTORY [...] DX:Chronic sin usitis; COMMENT: DR ROGEL, [facility]NT [facility] Pulmonary embolism ([facility] V24, [facility] V28) 10/30/2015 DX:Pulmonary embolism ([facility]) COPD (chronic obstructive pu lmonary disease) ([facility] V24, [facility] V28) 02/08/2014 DX:COPD (chronic o bstructive pulmonary disease) ([facility]); COMMENT: Nata Initially felt COPD but 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 PFTS 2013 normal [place] (myocardial infarction) ( [facility] V24, [facility] V28) 04/2017 DX:DC (myocardial infarction ) ([facility]); COMMENT: inferior wall DC, right coronary stent place, sees Dr. Ramos. [place] (myocardial infarction) ( [facility] V24, [facility] V28) DX:DC (myocardial infarction ) ([facility]) Actinic keratosis, hx of DX:Acti lala keratosis, hx of Hiatal hernia with GERD and esophagitis 05/04/2019 DX:Hiatal hernia with GERD a nd esophagitis; COMMENT: Grade A esophagitis, [facility] GI - referral to surgery Hiatal hernia with GERD and esophagitis 05/04/2019 DX:Hiatal hernia with GERD a nd esophagitis Hypertension 11/08/2020 DX:Hypertension History of migraine DX:History o f migraine Dyspnea and respiratory abnormalities DX:Dyspnea and respiratory abnormalities Acute transmural inferior wa ll [place] ([facility] V24, [facility] V28) 06/24/2022 Family History Medical History Relation [...] Health Maintenance Due Date Last Done Comments Colorectal Cancer Screening: Colonoscopy 1960 Zoster Vaccines (1 of 2) 02/26/1979 Pneumococcal Vaccine: 50+ Years (2 of 2 - PCV) 04/28/2018 04/28/2017 RSV Immunization Adult Patients (1 - Risk 60-74 years 1-dose series) 2020 Abdominal Aortic Aneurysm (AAA) Screen 09/12/2022 Cholesterol Screening (Lipid Panel) 09/12/2022 Hepatitis C Screening 09/12/2022 Social Influencers of Health Screening 09/12/2022 Hypertension/CHF/CAD Annual BMP Blood Test 09/13/2022 Depression Screening 10/04/2024 Falls Risk Assessment 02/26/2025 COVID-19 Vaccine ( - season) 2025 09/30/2021, 11/05/2020, 10/08/2020 Influenza Vaccine [...] 4:24 PM EDT Coronary artery disease involving [place] coronary artery of [place] heart without angina pectoris from Last 3 Months Results * ECG 12 lead (05/28/2025 4:24 PM EDT) Ventricular Rate ECG 79 BPM GEMUSE Atrial Rate 79 BPM GEMUSE P-R Interval 174 ms GEMUSE QRS Duration 84 ms GEMUSE Q-T Interval 406 ms GEMUSE QTc 465 ms GEMUSE P Wave [place] 61 degrees GEMUSE R [place] 76 degrees GEMUSE T [place] 69 degrees GEMUSE ECG Interpretation Sinus rhythm with occasional Premature ventricular complexes Otherwise normal ECG No previous ECGs available Confirmed by Antonella BURRELL JAMES ([id number]) on 05/29/2025 1:04:24 PM GEMUSE 05/28/2025 2:26 PM EDT 05/29/2025 1:04 PM EDT us Violeta Rushing NP ECG ORDERABLES Edited Resul t - Final GEMUSE from Last 3 Months Insurance [facility]
== END 2025-07-09 15:58 | disposition home or self-care (01) ==
LOC: HO.HMGAL 15:58
PROVIDERS: PCP Physician Assistant Medical; Visit Provider Registered Nurse Emergency
DX: J30.89 Other allergic rhinitis (principal)
CPT/HCPCS: 95117; 95165

== ENCOUNTER 2025-07-23 16:05 | Outpatient (AMB) | payer OTHER, SELFPAY | END 2025-07-23 16:05 | disposition home or self-care (01) | LOC: HO.HMGAL 16:05 | PROVIDERS: PCP Physician Assistant Medical; Visit Provider Registered Nurse Emergency | DX: J30.89 Other allergic rhinitis (principal) | CPT/HCPCS: 95117; 95165 ==

== ENCOUNTER 2025-08-06 16:18 | Outpatient (AMB) | payer OTHER, SELFPAY ==
--- OUTSIDE RECORDS SUMMARY | 2025-08-06 17:13 | XMS_ITS | Data Portability ---
Author Organization [facility], [id number] Address [address] [place] [address] Care Team Providers Care High Pressure Boiler Operator Name Role Phone DILIP ELLSWORTH Primary Care Provider [phone] Assessment Encounter Date Assessment Date Assessment LastModified [...] By Organization Details Last Modified Time 03/10/2024 [id number] application of wound dressing* SHANTEL Not available [...] Yes Not Available [address] [place], [address], 03/10/2024 11:57:21 Result Notes None recorded. Problems Name Problem SNOMED Code Status Onset Date Resolution Date Notes Provider Name and Address Organization Details Recorded Time Heart disease 31711616 Active Naomi Mcelroyalma n null, [place] - [facility] 4 10:33:54 Hypertensiv e disorder 47417007 Active Naomi Mcelroyringto n null, PA - [facility] 4 10:34:08 Asthma 438807375 Active Naomi Mcelroyringto n null, PA - [facility] 4 10:34:18 Migraine 23901582 Active Naomi Mcclendonelena n null, PA - [facility] 4 10:34:26 Laceration of left thigh 6982260673858 9109 Active 2023 LISA ZAMORA NP [address] , [place], [address], PA - [facility] 4 11:56:49 Problem Notes None recorded. Procedures Surgical History Date Name Laterality Status Provider Name and Address Organization Details Recorded Time 4 Suture Removal completed Bola Shaw NP [address], [place], [address], [place] - [facility] 03/18/2024 09:20:44 4 Laceration, Simple Repair, (scalp/neck/ trunk/genita marco a/extremit ies) 2.6-7.5cm completed LISA ZAMORA NP [address], [place], [address], [place] - [facility] 03/10/2024 11:58:39 Imaging Results None recorded. Procedure Notes None recorded. Medical Equipment None Reported. Allergies Allergen ID Allergen Name Allergen Category Reaction Reaction Severity Criticality Documentation Date Start Date Code Code System Note Provider Name and Address Organization Details Recorded Time 604817 tree and shrub pollen environme nt,medica tion anaphylax is Not available Not available 03/10/2024 Naomisky rabago null, PA - [facility] 4 10:31:26 866189 Product containin g penicilli n (product) medicatio n rash Not available high 03/18/2024 [address] [facility] Cari Mcgrath DIMA Tinajero - [facility] 4 08:55:00 Medications Name [...] Updated DateTime 4 182.88 cm 25 kg/m2 08502 g 18 /min 106 /min 98.1 [degF] 136/87 mm[Hg] Naomi rabago PA - [facility] 4 10:30:51 Date Recorded Body height Body mass index (BMI) Body weight Oxygen saturation Oxygen saturation in Arterial blood by Pulse oximetry Heart rate Respiratory rate Body temperature Systolic And Diastolic Provider Name and Address Organization Details Last Updated DateTime 4 182.88 cm 25 kg/m2 36159 g 98 % 98 % 85 /min 18 /min 97.5 [degF] 115/68 mm[Hg] Cari Sahu PA - [facility] 4 08:58:05 Social History Question Answer Notes LastModified by [email or web address] ion Details LastModified Time Tobacco Smoking Status [...] alcohol? Less than 1 time per week Information not available 03/18/2024 Do you use [...] [facility] 03/18/2024 08:54:15 Tdap 1 completed Caridianne Mcgrath Heyliger null, PA - [facility] 03/18/2024 08:54:15 Td (adult), 2 Lf tetanus toxoid, preservative free, adsorbed 1 completed Cari Mcgrath Heyliger null, PA [...] Influenza, split virus, quadrivalent, PF 7 completed Caridianne Mcgrath Heyliger null, PA - [facility] 03/18/2024 08:54:15 Influenza, split virus, quadrivalent, PF 1 completed Cari Mcgrath Heyliger null, PA - [facility] 03/18/2024 08:54:15 Tdap 4 completed LISA ZAMORA NP [address] [place], [place] [address], [address], PA - [facility] 03/10/2024 19:23:50 Past Encounters Encounter ID Performer Location Encounter Start Date Encounter Closed Date Diagnosis/Indication Diagnosis SNOMED-CT Code Diagnosis ICD10 Code Diagnosis IMO Codes Diagnosis Note [id number] [address] [place] [address] 10/05/2015 19:03:30 10/05/2015 19:49:27 [id number] [address] [place] [address] 10/18/2016 10:32:40 10/18/2016 11:04:25 [id number] [address] [place] [address] 12/17/2018 09:47:03 12/17/2018 10:55:09 [id number] [address] [facility] [place] [address] 03/23/2021 08:15:57 03/23/2021 09:05:22 [id number] [address] [place] [address] 12/08/2020 18:22:45 12/08/2020 20:04:36 [id number] [address] [place] [address] 12/14/2016 11:17:28 12/14/2016 13:33:15 [id number] [address] [place] [address] 01/18/2016 10:21:11 01/18/2016 10:49:42 [id number] LISA ZAMORA, BEAN SNAPPER [address] [place] [address] 03/10/2024 10:21:58 03/10/2024 12:04:32 Laceration of left thigh [id number] [id number] S71.112A [id number] Bola Colin, BEAN SNAPPER [address] [place] [address] 03/18/2024 08:47:09 03/18/2024 09:22:18 Laceration of left thigh [id number] S71.112A KEEP AREA CLEAN AND DRY.MAY APPLY [...] FOR WOUND RECHECK NEEDED. Removal of suture [id number] 01 Z48.02 KEEP AREA CLEAN AND DRY.MAY [...] Verdin Member ID Guarantor Name 03/18/2024 1 [facility] [id number] Kendell Barillas [id number] Kendell Barillas Notes Date Note Type Note Provider Name and Address Organization Details Recorded Time 03/10/2024 text/html UC Wound/LacerationRep orted by PatientHPIFor location, patient reportsthighs(left inner thigh laceration). For severity, patient reportsmoderate. For context, patient reportstrauma. 64 y male here for laceration to inner thigh, left legwas cutting some pipes when the blade slipped and caused injury to inner thightetanus unknown LISA ZAMORA NP [address] [place], [address], [place] - [facility] 03/10/2024 19:24:17 03/18/2024 text/html UC Wound/LacerationRep orted by PatientHPIFor location, patient reportsthighs(left inner thigh laceration). For severity, patient reportsmoderate. For context, patient reportstrauma. 64 y male here for laceration to inner thigh, left legwas cutting some pipes when the blade slipped and caused injury to inner thightetanus unknown Bola Shaw NP [address] [place], [address], [employer] [employer] 03/18/2024 09:21:16
== END 2025-08-06 16:18 | disposition home or self-care (01) ==
LOC: HO.HMGAL 16:18
PROVIDERS: PCP Physician Assistant Medical; Visit Provider Registered Nurse Emergency
DX: J30.89 Other allergic rhinitis (principal)
CPT/HCPCS: 95117; 95165

== ENCOUNTER 2025-09-03 12:04 | Outpatient (AMB) | payer OTHER, SELFPAY ==
--- OUTSIDE RECORDS SUMMARY | 2025-09-03 15:52 | XMS_ITS | Clinical Summary ---
Author Organization [facility] Address [address] [place] [address] Phone Care Team Providers Care Human Resources Manager Name Role Phone Unavailable Primary Care Provider [...] Diagnosed Date Coronary artery disease invo lving [place] coronary artery of [place] heart without angina pectoris 05/28/2025 Assessment & [...] Resolved Date Acute transmural inferior wa ll [place] ([facility] V24, [facility] V28) 06/24/2022 05/28/2025 Coronary artery disease 11/08/202005/05 [...] management and follow- up in 1 year Surgical History Surgery Date Site/Laterality Comments OTHER SURGICAL HISTORY 1987 PROCEDURE: SD REPAIR PRIMARY OPEN/PRQ RUPTURED ACHILLES TENDON; COMMENT: Right OTHER SURGICAL HISTORY PROCEDURE: SD OPEN TX TRANS-SCAPHOPERILUNAR FRACTURE DISLC; COMMENT: Right OTHER SURGICAL HISTORY 12/2007 PROCEDURE: CHG ASSAY OF PROSTATE SPECIFIC ANTIGEN FREE; COMMENT: 1.2 HERNIA REPAIR 04/2008 PROCEDURE: HISTORICAL HERNIA REPAIR/ING; COMMENT: Right; Jayme COLONOSCOPY 10/07/2012 PROCEDURE: SD COLONOSCOPY FLX DX W/COLLJ SPEC WHEN PFRMD; COMMENT: normal OTHER SURGICAL HISTORY 08/12/2015 Right PROCEDURE: SD OPEN REPAIR OF ROTATOR CUFF ACUTE; COMMENT: Florentin OTHER SURGICAL HISTORY 03/30/2019 PROCEDURE: UPPER GASTROINTESTINAL ENDOSCOPY IN; COMMENT: Grade A esophagitis in the GE, medium hiatal hernia, erosive gastritis OTHER SURGICAL HISTORY 10/04/2015 PROCEDURE: SD EGD PARTIAL/COMPL ESOPHAGOGASTRIC FUNDOPLASTY OTHER SURGICAL HISTORY [...] DX:Chronic sin usitis; COMMENT: DR ROGEL, ENT [facility] Pulmonary embolism ([facility] V24, [facility] V28) 10/30/2015 DX:Pulmonary embolism (HCC) COPD (chronic obstructive pu lmonary disease) ([facility] V24, [facility] V28) 02/08/2014 DX:COPD (chronic o bstructive pulmonary disease) ([facility]); COMMENT: Nata Initially felt COPD but 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 PFTS 2013 normal [place] (myocardial infarction) ( [facility] V24, [facility] V28) 04/2017 DX:[place] (myocardial infarction ) ([facility]); COMMENT: inferior wall AK, right coronary stent place, sees Dr. Ramos. [place] (myocardial infarction) ( [facility] V24, [facility] V28) DX:[place] (myocardial infarction ) ([facility]) Actinic keratosis, hx of DX:Acti lala keratosis, hx of Hiatal hernia with GERD and esophagitis 05/04/2019 DX:Hiatal hernia with GERD a nd esophagitis; COMMENT: Grade A esophagitis, [facility] GI - referral to surgery Hiatal hernia with GERD and esophagitis 05/04/2019 DX:Hiatal hernia with GERD a nd esophagitis Hypertension 11/08/2020 DX:Hypertension History of migraine DX:History o f migraine Dyspnea and respiratory abnormalities DX:Dyspnea and respiratory abnormalities Acute transmural inferior wa ll [place] ([facility] V24, [facility] V28) 06/24/2022 Family History Medical History Relation [...] 1960 Zoster Vaccines (1 of 2) 02/26/1979 RSV Immunization Adult Patients (1 - Risk 50-74 years 1-dose series) 02/26/2010 Pneumococcal Vaccine: 50+ Years (2 of 2 - PCV) 04/28/2018 04/28/2017 Abdominal Aortic Aneurysm (AAA) Screen 09/12/2022 Cholesterol [...] patient's age to complete this topic Insurance [place] [id number]
== END 2025-09-03 12:05 | disposition home or self-care (01) ==
LOC: HO.HMGAL 12:04
PROVIDERS: PCP Physician Assistant Medical; Visit Provider Registered Nurse Emergency
DX: J30.89 Other allergic rhinitis (principal)
CPT/HCPCS: 95117; 95165